=== PATIENT | female | born 1950 | race Caucasian/White ===

== ENCOUNTER 2024-05-22 00:15 | Emergency (ER) | payer MEDICARE, OTHER, SELFPAY ==
[2024-05-22 00:16] VITALS: BP 112/81
[2024-05-22 00:18] VITALS: BP 112/81
--- NOTE | 2024-05-22 00:24 | ED.GENMED ---
History of Present Illness
General
Chief Complaint: Fainting/Passed Out
Source: patient
Time Seen by Provider: 05/22/24 00:24
History of Present Illness
History of Present Illness:
This patient is a very pleasant 73-year-old female who had dinner with her friends, followed by shots of tequila. She then wanted to go to bed so took 'sleepy time' CBD as she has in the past. She then started to feel like she needed to have a
bowel movement went to the toilet and had a loose nonbloody bowel movement. However, she started to feel lightheaded, and slowly lowered herself down onto the floor. She denies associated chest pain, headache, neck pain, back pain, dyspnea,
abdominal pain, or other complaints. Her friend became concerned, and called medics. Upon their arrival, patient was awake without specific complaints but slightly hypotensive. IV fluids were administered on transport. Patient states now that
she is tired but otherwise denies any complaints. She is also thirsty. She again denies any other physical symptoms. No recent trauma, falls, immobilization, or other PE risk factors.
Past History
Past History
ED Past Medical History: Hypercholesterolemia
Social History
Tobacco: Non-smoker
Alcohol: Occasional
Drug: Marijuana
Personal: Single
Living: with roommate
Phy Exam
Physical Exam
Physical Exam:
GENERAL: Alert , in no apparent distress
EYE: pupils equal and reactive, no photophobia
NECK: Supple, no significant adenopathy.
ENT: o/p clr, mmm.
CARDIAC: Regular rate and rhythm .
LUNGS: Clear breath sounds bilaterally, no acute respiratory distress, no wheezes/rales/rhonchi
ABDOMEN: Soft, without focal tenderness, no r/g, no cvat
NEUROLOGICAL: Alert and oriented, no focal neuro deficits, motor 5 out of 5, sensory intact, cranial nerves II through XII intact, [id number] normal
SKIN: Warm and dry, skin intact.
MUSCULOSKELETAL: No edema, well perfused.
PSYCH: Normal and appropriate interaction.
Course
Orders/Labs/Results
Orders:
Orders
05/22/24 00:16
Electrocardiogram (*1) Urgent
Reason for Study: Syncope
05/22/24 00:17
EKG- Treatment ONCE
05/22/24 00:29
Complete Blood Count/With Diff Urgent
Comprehensive Metabolic Panel Urgent
Abnormal Lab Results
05/22/24
00:29
RBC 4.07 L 10^6/uL
(4.20-5.40)
MCHC 32.3 L g/dL
(33.0-37.0)
Glucose 152 H mg/dl
(70-99)
Calcium 8.3 L mg/dl
(8.4-10.2)
Total Protein 5.7 L g/dl
(6.3-8.2)
05/22/24 00:29
05/22/24 00:29
Vital Signs
Initial and Last Documented VS:
Initial Vital Signs
Pulse Resp BP
79 19 112/81
05/22/24 00:16 05/22/24 00:16 05/22/24 00:16
Last Documented Vital Signs
Temp Pulse Resp BP Pulse Ox
98.0 F 69 13 122/77 95
05/22/24 00:18 05/22/24 02:00 05/22/24 02:00 05/22/24 01:00 05/22/24 01:30
*Critical Care Note
Total Time (30-74mins, 75-104mins- exclusive of procedures): Not Applicable
Update Note
Update Note:
Patient presents to the Emergency Department with __near syncope
Number and Complexity of Problems Addressed at the Encounter
� Chronic conditions affecting care:
� Acute Exacerbation and/or Progression of Chronic Illness:
� Differential Diagnosis includes: But not limited to vasovagal events, defecation related event, alcohol/CBD related events, etc. etc.
Amount and/or Complexity of Data to be Reviewed and Analyzed
� I performed an independent evaluation of and my interpretation is:
EKG: Read by me, normal sinus rhythm, slightly low voltage, no acute ischemia
CT:
Xrays:
Laboratory Studies:Generally unremarkable
Other:
� Review of other/old records reveals:
� Clinical information was obtained by an independent historian:ems
� Prescriptions/Medications Considered but not given:
� Further testing considered but not performed:
Risk of Complications and/or Morbidity or Mortality of Patient Management
� Social determinants of health affecting care:
� Discussion with other providers (PCP, Hospitalists, Consultants, etc):
� Escalation of care including admission/observation vs risk of discharge considered:1:51 AM patient feels well, no symptoms, walked to the bathroom with ease, eager to go home. Suspect symptoms related to alcohol/CBD that
patient ingested perhaps with a vagal component while having a bowel movement. Workup and evaluation otherwise unremarkable. Discussed with patient importance of follow-up and reasons to return to the ER.
ED Attending Note
-
Portions of this chart may have been created with voice recognition software.� Occasional wrong word or��sound alike� substitutions may have occurred due to the inherent limitations of voice recognition software.
Discharge Plan
Departure
Patient Disposition: Home (Routine Discharge)
Date of Disposition: 05/22/24
Time of Disposition: 01:51
Patient with high blood pressure during this ER visit?: Yes
Condition: Good
Discharge Problem:
Near syncope
Instructions: Syncope (Fainting) (DC), BLOOD PRESSURE
Referrals:
UNKNOWN - PT DOES,NOT KNOW [Family Provider] -
Activity Restrictions/Additional Instructions:
IF YOU DEVELOP CHEST PAIN, SHORTNESS OF BREATH, DIZZINESS, NUMBNESS, WEAKNESS, VISUAL CHANGES, SEVERE HEADACHE, OR OTHER WORRISOME SIGNS, PLEASE RETURN TO THE ER IMMEDIATELY.
Interventions
Interventions:
*Risk Screen - Suicide Last Done: 05/22/24 00:34
*General Assessment Last Done: 05/22/24 00:34
*Neglect/Abuse Screening Last Done: 05/22/24 00:34
ED- Fall Risk Assessment Last Done: 05/22/24 00:34
*ED COVID-19 Vaccine History Last Done: 05/22/24 00:34
*Nursing Disposition Last Done: 05/22/24 02:14
ED- Cardiac Assessment Last Done: 05/22/24 00:34
ED- Neurological Assessment Last Done: 05/22/24 00:34
Discharge Date and Time
Discharge Date/Time: 05/22/24 02:15
Print Language: SRI LANKAN
[2024-05-22 00:28] VITALS: BMI 27.1
[2024-05-22 00:42] LABS: % Basophils 0.6 % (0-2); % Eosinophils 2.5 % (0-6); % Immature Granulocytes 0.3 % (0-0.5); % Monocytes 9.1 % (1.7-9.3); % Neutrophils 52.5 % (42.2-75.2); Absolute Eosinophils 0.2 10^3/uL (0-0.7); Absolute Lymphocytes 2.3 10^3/uL (1.2-3.4); Absolute Monocytes 0.6 10^3/uL (0.1-0.6); Absolute Neutrophils 3.4 10^3/uL (1.4-6.5); Hematocrit 38.4 % (37.0-47.0); Hemoglobin 12.4 g/dL (12.0-16.0); Mean Corp Hgb Conc. 32.3 g/dL (33.0-37.0); Mean Corpuscular Hgb 30.5 pg (27.0-31.0); Mean Corpuscular Volume 94.3 fL (81.0-99.0); Mean Platelet Volume 9.5 fL (7.4-10.4); Nucleated Red Blood Cells % 0 %; Platelet Count 223 10^3/uL (130-400); Red Blood Cell Count 4.07 10^6/uL (4.20-5.40); Red Cell Dist. Width 12.9 % (11.5-14.5); White Blood Cell Count 6.5 10^3/uL (4.8-10.8)
[2024-05-22 00:58] LABS: ALT (SGPT) 16 U/L (0-35); AST (SGOT) 20 U/L (14-36); Albumin 3.6 g/dl (3.5-5.0); Alkaline Phosphatase 86 U/L (38-126); Blood Urea Nitrogen 17 mg/dl (7-17); Calcium 8.3 mg/dl (8.4-10.2); Carbon Dioxide 24 mmol/L (22-30); Chloride 106 mmol/L (98-107); Estimated Creatinine Clearance 54 ml/min; Glucose 152 mg/dl (70-99); Potassium 3.8 mmol/L (3.5-5.1); Sodium 140 mmol/L (135-145); Total Bilirubin 0.3 mg/dl (0.2-1.3); Total Protein 5.7 g/dl (6.3-8.2); eGFR > 60.00
[2024-05-22 01:00] VITALS: BP 122/77
== END 2024-05-22 02:15 | disposition home or self-care (01) ==
LOC: EMR 00:15
PROVIDERS: EMERGENCY PHYSICIAN Emergency Medicine
DX: R55 Syncope and collapse (principal); E78.00 Pure hypercholesterolemia, unspecified
CPT/HCPCS: 99284; 80053; 85025; 93005